=== PATIENT | male | born 1960 | race Caucasian/White ===

== ENCOUNTER 2016-09-09 16:52 | Emergency (ER) | payer OTHER ==
[~2016-09-09] VITALS: Wt 81.0 kg
[~2016-09-09 16:52] MED LIST: AZIT250T6 PO; CYCL-319 PO; FLUT9.9S NASAL; NAPR-260 PO
[2016-09-09] MEDS ORDERED: KETOROLAC 60 MG INJ IM STA (17:43)
[2016-09-09] MEDS ORDERED: TRAM50TA2 PO (17:49)
[2016-09-09] MEDS ORDERED: DIAZ-90 PO (17:49)
--- NOTE | 2016-09-09 17:52 | ERD ---
ER Documentation Chief Complaint Date/Time DATE: 09/09/16 TIME: 17:49 Chief Complaint NECK PAIN X 5 MONTHS HPI This 56-year-old male complains of posterior neck pain for last 5 months. He has been seen here before and prescribed Naprosyn and Flexeril. He seen his primary doctor and received unspecified medication. He states that nothing helps. He seen a specialist has had MRI and x-rays. He was told he had some abnormality of his disc and was referred to physical therapy which he has not started yet. He was advised he may need surgery if physical therapy does not help. Patient is requesting some type of shot for inflammation is noted the pills are working. Denies any fevers, visual changes, weakness, bowel or bladder incontinence, recent trauma. The pain radiates up the back of his head and his numbness and tingling but the pain initiates the C1-C2 area. ROS All systems reviewed and are negative except as per history of present illness. Medications Home Meds Active Scripts Tramadol HCl (Tramadol HCl) 50 Mg Tablet, 50 MG PO Q4 Y for PAIN, #15 TAB Prov:GLORIA FLYNN MD 09/09/16 Diazepam* (Valium*) 5 Mg Tablet, 5 MG PO Q8, #16 TAB Prov:GLORIA FLYNN MD 09/09/16 Cyclobenzaprine Hcl* (Cyclobenzaprine Hcl*) 10 Mg Tablet, 10 MG PO BID, #10 TAB Prov:NY NEVES PA-C 04/25/16 Naproxen* (Naprosyn*) 500 Mg Tablet, 500 MG PO BID Y for PAIN AND/OR INFLAMMATION, #30 TAB Prov:NY NEVES PA-C 04/25/16 Azithromycin* (Azithromycin*) 250 Mg Tablet, 250 MG PO DAILY, #6 TAB Prov:TANISHA HAQUE PA-C 03/21/16 Fluticasone Propionate (Flonase Allergy Relief) 9.9 Ml [place].susp, 1 SPRAY NASAL BID, #1 BOTTLE TO EACH NOSTRIL Prov:TANISHA HAQUE PA-C 03/21/16 Allergies Allergies: Coded Allergies: No Known Allergy (Unverified , 03/21/16) PMhx/Soc History of Surgery: No Anesthesia Reaction: No Hx Neurological Disorder: No Hx Respiratory Disorders: No Hx Cardiac Disorders: No Hx Psychiatric Problems: No Hx Miscellaneous Medical Probl: Yes (seasonal allergies ) Hx Alcohol Use: No Hx Substance Use: No Hx Tobacco Use: No Physical Exam Vitals Vital Signs Date Time Temp Pulse Resp B/P Pulse Ox O2 Delivery O2 Flow Rate FiO2 09/09/16 16:57 98.0 88 18 107/66 99 Physical Exam Const: [] Not ill-appearing. Head: Atraumatic Eyes: Normal Conjunctiva ENT: Normal External Ears, Nose and Mouth. Neck: Full range of motion..~ No meningismus. Tenderness in the C2-C3 to paraspinous muscles no appreciable midline tenderness or deformities. Resp: Clear to auscultation bilaterally Cardio: Regular rate and rhythm, no murmurs Abd: Soft, non tender, non distended. Normal bowel sounds Skin: No petechiae or rashes Back: No midline or flank tenderness Ext: No cyanosis, or edema Neur: Awake and alert. Cranial nerves II through XII grossly intact. Normal gait. No cerebellar signs. Psych: Normal Mood and Affect Results 24 hrs Current Medications Medications (Trade) Dose Ordered Sig/Scott Route PRN Reason Start Time Stop Time Status Last Admin Dose Admin Ketorolac Tromethamine (Toradol) 60 mg ONCE STAT IM 09/09/16 17:43 09/09/16 17:44 DC Dexamethasone (Decadron) 8 mg ONCE ONCE IM 09/09/16 18:00 09/09/16 18:01 Procedures/MDM Patient has signs and symptoms of acute radicular pain rating from his neck. Signs or symptoms do not suggest intracranial bleeding, mass-effect, neurologic deficit, meningitis, fracture, dislocation. Patient was given Toradol 60 mg IM and Decadron 8 mg IM. Patient was discharged home the course of Valium and tramadol and instructions to continue physical therapy as scheduled and follow- up with his primary doctor. He should return for fevers, weakness, new or worsening symptoms as directed and aftercare instructions. The patient was stable with no new complaints during the ER course. Clinically, there is no current evidence to suggest meningitis, sepsis, acute abdomen, pneumonia, acute coronary syndrome, pulmonary embolism, or any other emergent condition appearing to require further evaluation or hospitalization. The patient should certainly return for any new or worsening symptoms per the aftercare instructions. They should otherwise follow-up with her primary care doctor for reevaluation this week. Departure Diagnosis: Primary Impression: Neck pain Condition: Stable Patient Instructions: Neck Pain, No Trauma Additional Instructions: Continue follow-up with primary doctor and therapy as scheduled. Recheck for fevers, new or worsening symptoms. GLORIA FLYNN MD Sep 09, 2016 17:52
[2016-09-09] MEDS ORDERED: DEXAMETHASONE 10 MG/ML 1 ML INJ IM ONE (18:00)
== END 2016-09-09 18:08 | disposition home or self-care (01) ==
LOC: FTE 16:52
DX: M54.2 Cervicalgia (principal)
CPT/HCPCS: 96372; 99284; J1100; J1885

== ENCOUNTER 2016-09-12 12:00 | Emergency (ER) | payer OTHER ==
[~2016-09-12] VITALS: Ht 157.5 cm; Wt 61.5 kg
[~2016-09-12 12:00] MED LIST changes: +DIAZ-90 PO; +TRAM50TA2 PO
[2016-09-12 12:03] VITALS: Ht 157.5 cm; Wt 61.5 kg
[2016-09-12] MEDS ORDERED: HYDROCODONE/APAP (5/325) TAB PO ONE (15:00)
[2016-09-12 15:06] LABS: ADD SCAN DIFF NO
[2016-09-12 15:08] LABS: BASOPHILS % 0.3 % (0.0-2.0); EOSINOPHILS # 0.1 10^3/ul (0.0-0.5); EOSINOPHILS % 0.5 % (0.0-7.0); HEMATOCRIT 46.9 % (42.0-52.0); HEMOGLOBIN 15.4 g/dl (14.0-18.0); LYMPHOCYTES # 2.9 10^3/ul (0.8-2.9); LYMPHOCYTES % 27.1 % (15.0-51.0); MEAN CORPUSCULAR HGB CONC 32.8 g/dl (32.0-37.0); MEAN CORPUSCULAR VOLUME 91.2 fl (82.0-101.0); MEAN PLATELET VOLUME 8.9 fl (7.4-10.4); MONOCYTE # 1.1 10^3/ul (0.3-0.9); MONOCYTES % 10.2 % (0.0-11.0); NEUTROPHIL # 6.5 10^3/ul (1.6-7.5); NEUTROPHILS % 61.5 % (39.0-77.0); PLATELET COUNT 217 10^3/UL (140-415); RED BLOOD COUNT 5.14 10^6/ul (4.70-6.10); RED CELL DISTRIBUTION WIDTH 12.5 % (11.5-14.5); WHITE BLOOD COUNT 10.6 10^3/ul (4.8-10.8)
[2016-09-12 15:48] LABS: ALBUMIN 4.1 g/dl (3.3-4.9)
[2016-09-12 15:51] LABS: ALBUMIN/GLOBULIN RATIO 1.46; BILIRUBIN,INDIRECT 0.6 mg/dl (0-1.1); BILIRUBIN,TOTAL 0.6 mg/dl (0.2-1.3); CREATININE 0.79 mg/dl (0.61-1.24); TOTAL PROTEIN 6.9 g/dl (6.1-8.1)
[2016-09-12 15:52] LABS: CALCIUM 9.1 mg/dl (8.4-10.2); URIC ACID 4.6 mg/dl (3.1-7.9)
[2016-09-12] MEDS ORDERED: HYDR-906 PO (16:14)
--- NOTE | 2016-09-12 16:17 | ERD ---
ER Documentation Chief Complaint Date/Time DATE: 09/12/16 TIME: 16:15 Chief Complaint RIGHT FOOT PAIN SINCE LAST NIGHT, NO TRAUMA, WAS APPLYING ICE ON IT HPI This 56-year-old male presents with pain in the dorsum of the right foot since last night. He denies any history of trauma or inciting events. Patient has been seen here last few days for neck pain and headache due to presumed history of cervical disc disease. Patient denies any shortness of breath, fevers. The headache is improved. ROS All systems reviewed and are negative except as per history of present illness. Medications Home Meds Active Scripts Hydrocodone/Acetaminophen (Freer 5-325 Tablet) 1 Each Tablet, 1 TAB PO Q6H Y for PAIN, #15 TAB Prov:GLORIA FLYNN MD 09/12/16 Tramadol HCl (Tramadol HCl) 50 Mg Tablet, 50 MG PO Q4 Y for PAIN, #15 TAB Prov:GLORIA FLYNN MD 09/09/16 Diazepam* (Valium*) 5 Mg Tablet, 5 MG PO Q8, #16 TAB Prov:GLORIA FLYNN MD 09/09/16 Cyclobenzaprine Hcl* (Cyclobenzaprine Hcl*) 10 Mg Tablet, 10 MG PO BID, #10 TAB Prov:NY NEVES PA-C 04/25/16 Naproxen* (Naprosyn*) 500 Mg Tablet, 500 MG PO BID Y for PAIN AND/OR INFLAMMATION, #30 TAB Prov:NY NEVES PA-C 04/25/16 Azithromycin* (Azithromycin*) 250 Mg Tablet, 250 MG PO DAILY, #6 TAB Prov:TANISHA HAQUE PA-C 03/21/16 Fluticasone Propionate (Flonase Allergy Relief) 9.9 Ml [place].susp, 1 SPRAY NASAL BID, #1 BOTTLE TO EACH NOSTRIL Prov:TANISHA HAQUE PA-C 03/21/16 Allergies Allergies: Coded Allergies: No Known Allergy (Unverified , 09/09/16) PMhx/Soc Medical and Surgical Hx: pt denies Medical Hx, pt denies Surgical Hx History of Surgery: No Anesthesia Reaction: No Hx Neurological Disorder: No Hx Respiratory Disorders: No Hx Cardiac Disorders: No Hx Psychiatric Problems: No Hx Miscellaneous Medical Probl: Yes (seasonal allergies ) Hx Alcohol Use: No Hx Substance Use: No Hx Tobacco Use: No Smoking Status: Never smoker Physical Exam Vitals Vital Signs Date Time Temp Pulse Resp B/P Pulse Ox O2 Delivery O2 Flow Rate FiO2 09/12/16 12:03 98.1 74 18 131/74 99 Physical Exam Const: [] Alert, [id number]. Head: Atraumatic Eyes: Normal Conjunctiva ENT: Normal External Ears, Nose and Mouth. Neck: Full range of motion..~ No meningismus. Resp: Clear to auscultation bilaterally Cardio: Regular rate and rhythm, no murmurs Abd: Soft, non tender, non distended. Normal bowel sounds Skin: No petechiae or rashes Back: No midline or flank tenderness Ext: No cyanosis, or edema. There is some tenderness across the dorsum of the right foot. There is some diminished capillary refill right greater than left. I am unable to appreciate significant pulses in the dorsalis pedis and anterior tibial bilaterally. There is no appreciable restricted range of motion weakness. There is no calf swelling or Homans sign. Neur: Awake and alert Psych: Normal Mood and Affect Result Diagram: 09/12/16 1457 09/12/16 1457 Results 24 hrs Laboratory Tests Test 09/12/16 14:57 Alanine Aminotransferase (ALT/SGPT) 48IU/L Albumin 4.1g/dl Albumin/Globulin Ratio 1.46 Alkaline Phosphatase 87IU/L Anion Gap 14 Aspartate Amino Transf (AST/SGOT) 38IU/L Basophils # 0.010^3/ul Basophils % 0.3% Blood Urea Nitrogen 18mg/dl Calcium Level 9.1mg/dl Carbon Dioxide Level 32mmol/L Chloride Level 97mmol/L Creatinine 0.79mg/dl Direct Bilirubin 0.00mg/dl Eosinophils # 0.110^3/ul Eosinophils % 0.5% Globulin 2.80g/dl Glucose Level 90mg/dl Hematocrit 46.9% Hemoglobin 15.4g/dl Indirect Bilirubin 0.6mg/dl Lipase 27U/L Lymphocytes # 2.910^3/ul Lymphocytes % 27.1% Mean Corpuscular Hemoglobin 30.0pg Mean Corpuscular Hemoglobin Concent 32.8g/dl Mean Corpuscular Volume 91.2fl Mean Platelet Volume 8.9fl Monocytes # 1.110^3/ul Monocytes % 10.2% Neutrophils # 6.510^3/ul Neutrophils % 61.5% Nucleated Red Blood Cells # 0.010^3/ul Nucleated Red Blood Cells % 0.0/100WBC Platelet Count 75465^3/UL Potassium Level 4.0mmol/L Red Blood Count 5.1410^6/ul Red Cell Distribution Width 12.5% Sodium Level 139mmol/L Total Bilirubin 0.6mg/dl Total Protein 6.9g/dl Uric Acid 4.6mg/dl White Blood Count 10.610^3/ul Current Medications Medications (Trade) Dose Ordered Sig/Scott Route PRN Reason Start Time Stop Time Status Last Admin Dose Admin Acetaminophen/ Hydrocodone Bitart (Freer (5/325)) 1 tab ONCE ONCE PO 09/12/16 15:00 09/12/16 15:01 DC 09/12/16 14:58 Procedures/MDM Given the uncertain cause of pain. A CBC and CMP were normal except for slightly elevated CO2. Uric acid is normal. Bilateral lower extremity arterial Doppler shows pulsatile flow bilaterally slightly diminished but no significant ischemia. X-ray right ankle 3V Interpreted by me: Bones: [No fracture] Joints: No dislocation. Impression-normal right ankle x-ray Patient was given Freer 5 mg by mouth. Patient has right foot pain of uncertain etiology. Signs or symptoms do not suggest fracture, dislocation, gout, cellulitis, osteomyelitis or septic arthritis,, DVT. We will treated with a short course of Freer and further observation at home. Patient is advised to follow-up with primary doctor this week return to the ER for any worsening symptoms. Departure Diagnosis: Primary Impression: Foot pain Laterality: right Qualified Code: M79.671 - Right foot pain Condition: Stable Patient Instructions: Arthralgia Additional Instructions: Examinations normal today. Uncertain cause of pains. See primary doctor this week return for fevers, new or worsening symptoms GLORIA FLYNN MD Sep 12, 2016 16:17
--- NOTE | 2016-09-12 16:37 | RADRPT ---
PROCEDURE: US bilateral lower extremity arteries. CLINICAL INDICATION: Bilateral leg pain. Claudication that interferes significantly with the marck ent's lifestyle. TECHNIQUE: Multiple longitudinal and transverse images of the bilateral lower extremity arteries w ere obtained with gonzales scale, pulsed Doppler, and color Doppler imaging. COMPARISON: No prior studies are available for comparison. FINDINGS: Right CRITICAL CARE NURSE SPECIALIST:82 cm/sec PSFA:93 cm/sec MSFA:70 cm/sec DSFA:54 cm/sec POP:46 cm/sec APPLICATION DEFENSE MANAGER:70 cm/sec DPA:33 cm/sec Left CRITICAL CARE NURSE SPECIALIST:63 cm/sec PSFA:82 cm/sec MSFA:91 cm/sec DSFA:66 cm/sec POP:40 cm/sec APPLICATION DEFENSE MANAGER:53 cm/sec DPA:35 cm/sec The right ankle-brachial index is 1.3 and the left ankle-brachial index is 1.3. There is normal triphasic flow throughout bilaterally. There is no plaque, stenosis, or occlusion. IMPRESSION: 1. Normal bilateral lower extremity arterial Doppler. RPTAT: QQ .Rick Cruz MD, Date Time Electronically viewed and signed by .Rick Cruz MD, on 09/12/2016 16:36 .R/
--- NOTE | 2016-09-12 17:19 | RADRPT ---
PROCEDURE: XR Ankle. CLINICAL INDICATION: Ankle pain TECHNIQUE: 3 views of the right ankle were performed. COMPARISON: None. FINDINGS: There is no acute fracture. Alignment is normal. There is mild to moderate talonavicular osteoarthrosis with dorsal osteophyte formation. Soft tissues are grossly unremarkable. IMPRESSION: 1. No radiographic evidence of acute osseous abnormality 2. 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 RPTAT: UU .Ye Mcclellan MD, MD Date Time Electronically viewed and signed by .Ye Mcclellan MD, on 09/12/2016 17:19 .K/
== END 2016-09-12 18:16 | disposition home or self-care (01) ==
LOC: FTE 12:00
DX: M79.671 Pain in right foot (principal)
CPT/HCPCS: 36415; 80053; 83690; 84560; 85025; 93922